=== PATIENT | female | born 1975 | race Caucasian/White ===

== ENCOUNTER 2024-02-15 16:24 | Inpatient (IN) | payer MEDICAID ==
[~2024-02-15] VITALS: Ht 160 cm; Wt 63.1 kg
[~2024-02-15 16:24] MED LIST: IBUP-1986 PO
[2024-02-15] MEDS: normal saline 1000ML IV soln IVB ONE (16:35)
[2024-02-15 17:19] LABS: HEMOGLOBIN 12.4 g/dl (12.0-16.0)
[2024-02-15 17:20] LABS: BASOPHILS % (AUTO) 0.3 % (0-1); EOSINOPHILS % (AUTO) 0 % (0-6); HEMATOCRIT 37.7 % (35.0-45.0); LYMPHOCYTES % (AUTO) 55.3 % (21-51); MEAN CORPUSCULAR HEMOGLOBIN 29.1 PG (27.0-31.0); MEAN CORPUSCULAR HGB CONC 32.9 g/dL (33.0-36.5); MEAN CORPUSCULAR VOLUME 88.3 FL (78-98); MEAN PLATELET VOLUME 7.4 FL (7.4-10.4); MONOCYTES % (AUTO) 11.2 % (2-12); NEUTROPHILS % (AUTO) 33.2 % (42-75); PLATELET COUNT 262 X10'3 (140-440); RED BLOOD COUNT 4.27 X10'6 (4.20-5.60); RED CELL DISTRIBUTION WIDTH 15.1 % (11.5-14.5); WHITE BLOOD COUNT 9.1 X10'3 (4.5-11.0)
[2024-02-15 17:28] LABS: ALBUMIN 3.6 G/DL (3.4-5.0); ANION GAP 11 (8-16); BLOOD UREA NITROGEN 19 MG/DL (7-18); BUN/CREATININE RATIO 20.2 (10.0-20.0); CALCIUM 9.8 MG/DL (8.5-10.1); CHLORIDE 105 MMOL/L (99-107); CREATININE 0.94 MG/DL (0.40-0.90); ETHANOL < 10 MG/DL (<10); GLUCOSE 84 MG/DL (70-104); POTASSIUM 3.5 MMOL/L (3.5-5.1); SODIUM 144 MMOL/L (135-145); eGFR 65 ML/MIN
[2024-02-15 18:59] LABS: BILIRUBIN,URINE NEGATIVE (Neg); CLARITY,URINE SLIGHTLY CLOUDY (Clear); COLOR,URINE YELLOW (Yellow); GLUCOSE, URINE NEGATIVE (Neg); KETONES,URINE NEGATIVE (Neg); LEUKOCYTE ESTERASE ,URINE TRACE (Neg); NITRITES, URINE POSITIVE (Neg); OCCULT BLOOD,URINE NEGATIVE (Neg); PH,URINE 6.5 (4.8-8.0); PROTEIN,URINE TRACE mg/dl (Neg); UROBILINOGEN,URINE 0.2 E.U/dL (0.2-1.0)
[2024-02-15 19:10] LABS: UA COLLECTION TYPE STRAIGHT CATH
[2024-02-15 19:11] LABS: URINE AMPHETAMINE SCREEN POSITIVE (Neg); URINE BARBITUATE SCREEN NEGATIVE (Neg); URINE BENZODIAZEPINES SCREEN NEGATIVE (Neg); URINE CANNABINOID SCREEN POSITIVE (Neg); URINE COCAINE SCREEN NEGATIVE (Neg); URINE METHADONE SCREEN NEGATIVE (Neg); URINE OPIATE SCREEN NEGATIVE (Neg); URINE PHENCYCLIDINE SCREEN NEGATIVE (Neg)
[2024-02-15 19:12] LABS: SQUAMOUS EPITHELIAL CELL,UR FEW /LPF (FEW)
[2024-02-15 19:13] LABS: BACTERIA,URINE 4+ /HPF (Neg); RBC,URINE NONE SEEN /HPF (0-2); WBC,URINE 30-50 /HPF (0-4)
[2024-02-15] MEDS: CefTRIAXone 250MG inj IM ONE (20:00)
[2024-02-15 20:10] LABS: SALICYLATE 1.6 MG/DL (4.0-20.0)
[2024-02-15 20:11] LABS: ACETAMINOPHEN < 2.0 UG/ML (10-30)
[2024-02-15] MEDS: CefTRIAXone 500MG IM Kit w/LIDOcaine IM ONE (20:26)
[2024-02-15] MEDS ORDERED: magnesium 4gm in 100ml NS 100 ML IV PRN (22:45)
[2024-02-15] MEDS ORDERED: ondansetron/PF 4mg/2ml inj IV PRN (22:45)
[2024-02-15] MEDS ORDERED: magnesium Cl slow-release 64mg tablet PO PRN (22:45)
[2024-02-15] MEDS ORDERED: acetaminophen 325mg tablet PO PRN (22:45)
[2024-02-15] MEDS ORDERED: magnesium 2GM in 50ml NS 50 ML IV PRN (22:45)
[2024-02-15] MEDS ORDERED: potassium Cl 40MEQ/1/2NS 520ml 520 ML IV PRN (22:45)
[2024-02-15] MEDS ORDERED: magnesium hydroxide 30ml (MOM) UD suspension PO PRN (22:45)
[2024-02-15] MEDS ORDERED: potassium Cl 20 mEq SR tablet PO PRN ×2 (22:45)
[2024-02-15] MEDS ORDERED: mag hydrox/Alum hydrox/simeth 30ml oral suspension PO PRN (22:45)
[2024-02-15] MEDS: dextrose 5%-1/2 normal saline 1,000 ML IV SCH (23:33)
[2024-02-16] VITALS (10 sets, daily range): BP systolic 95–113; BP diastolic 47–67; PULSE 74–89; RESP 12–26; TEMP 96.9–98.6; O2SAT 94–98
[2024-02-16 06:58] LABS: BASOPHILS % (AUTO) 0.2 % (0-1); EOSINOPHILS % (AUTO) 0.1 % (0-6); HEMATOCRIT 33.2 % (35.0-45.0); LYMPHOCYTES # (AUTO) 2.2 X10'3 (1.1-4.8); LYMPHOCYTES % (AUTO) 41.7 % (21-51); MEAN CORPUSCULAR HEMOGLOBIN 29.1 PG (27.0-31.0); MEAN CORPUSCULAR HGB CONC 33.1 g/dL (33.0-36.5); MEAN CORPUSCULAR VOLUME 87.9 FL (78-98); MEAN PLATELET VOLUME 7.5 FL (7.4-10.4); MONOCYTES # (AUTO) 0.4 X10'3 (0-0.9); NEUTROPHILS # (AUTO) 2.7 X10'3 (1.8-7.7); PLATELET COUNT 205 X10'3 (140-440); RED BLOOD COUNT 3.78 X10'6 (4.20-5.60); RED CELL DISTRIBUTION WIDTH 15.1 % (11.5-14.5); WHITE BLOOD COUNT 5.3 X10'3 (4.5-11.0)
[2024-02-16 07:41] LABS: ALANINE AMINOTRANSFERASE 162 U/L (12-78); ALBUMIN 2.8 G/DL (3.4-5.0); ALBUMIN/GLOBULIN RATIO 0.7 (1.1-1.5); ALKALINE PHOSPHATASE 89 IU/L (46-116); ANION GAP 7 (8-16); ASPARTATE AMINO TRANSFERASE 161 U/L (10-37); BILIRUBIN,TOTAL 0.5 MG/DL (0.1-1.0); BLOOD UREA NITROGEN 15 MG/DL (7-18); BUN/CREATININE RATIO 22.4 (10.0-20.0); CALCIUM 8.5 MG/DL (8.5-10.1); CHLORIDE 110 MMOL/L (99-107); CREATININE 0.67 MG/DL (0.40-0.90); GLUCOSE 84 MG/DL (70-104); MAGNESIUM 2.1 MG/DL (1.5-2.4); POTASSIUM 3.6 MMOL/L (3.5-5.1); SODIUM 144 MMOL/L (135-145); TOTAL CARBON DIOXIDE 26.9 MMOL/L (24-32); TOTAL PROTEIN 7.1 G/DL (6.4-8.2); eGFR > 90 ML/MIN
[2024-02-16] MEDS: K and/or MAG REPLACEMENT MC SCH (08:33)
[2024-02-16] MEDS: docusate sod 100mg capsule PO SCH (08:51)
[2024-02-16] MEDS: heparin, porcine 5000 units/ml vial SQ SCH (08:51)
[2024-02-16] MEDS: ketorolac trometh. 30mg/ml inj. IV ONE (14:02)
[2024-02-16] MEDS: CefTRIAXone/D5W-Rocephin 1gm 50 ML IV SCH (14:02)
[2024-02-17] MEDS: ibuprofen tablet 400 MG TABLET PO PRN (01:20)
[2024-02-17 01:23] VITALS: BP 102/55; PULSE 85; RESP 18; TEMP 97.7; O2SAT 97
[2024-02-17] MEDS ORDERED: NO HOME MEDS (02:24)
[2024-02-17 06:33] LABS: BASOPHILS % (AUTO) 0.7 % (0-1); EOSINOPHILS % (AUTO) 0.1 % (0-6); HEMATOCRIT 34.6 % (35.0-45.0); HEMOGLOBIN 11.5 g/dl (12.0-16.0); LYMPHOCYTES # (AUTO) 2.2 X10'3 (1.1-4.8); LYMPHOCYTES % (AUTO) 47.8 % (21-51); MEAN CORPUSCULAR HEMOGLOBIN 29.5 PG (27.0-31.0); MEAN CORPUSCULAR HGB CONC 33.3 g/dL (33.0-36.5); MEAN CORPUSCULAR VOLUME 88.7 FL (78-98); MEAN PLATELET VOLUME 7.3 FL (7.4-10.4); MONOCYTES # (AUTO) 0.3 X10'3 (0-0.9); MONOCYTES % (AUTO) 7.1 % (2-12); NEUTROPHILS % (AUTO) 44.3 % (42-75); PLATELET COUNT 188 X10'3 (140-440); RED CELL DISTRIBUTION WIDTH 15.2 % (11.5-14.5); WHITE BLOOD COUNT 4.6 X10'3 (4.5-11.0)
[2024-02-17 06:59] LABS: ALANINE AMINOTRANSFERASE 157 U/L (12-78); ALBUMIN 2.7 G/DL (3.4-5.0); ALBUMIN/GLOBULIN RATIO 0.6 (1.1-1.5); ALKALINE PHOSPHATASE 83 IU/L (46-116); ANION GAP 8 (8-16); ASPARTATE AMINO TRANSFERASE 155 U/L (10-37); BILIRUBIN,TOTAL 0.3 MG/DL (0.1-1.0); BLOOD UREA NITROGEN 18 MG/DL (7-18); BUN/CREATININE RATIO 23.4 (10.0-20.0); CALCIUM 8.5 MG/DL (8.5-10.1); CHLORIDE 109 MMOL/L (99-107); CREATININE 0.77 MG/DL (0.40-0.90); GLUCOSE 92 MG/DL (70-104); MAGNESIUM 1.9 MG/DL (1.5-2.4); POTASSIUM 4.1 MMOL/L (3.5-5.1); SODIUM 142 MMOL/L (135-145); TOTAL CARBON DIOXIDE 25.3 MMOL/L (24-32); TOTAL PROTEIN 7.3 G/DL (6.4-8.2); eCRCL 76 ML/MIN; eGFR 81 ML/MIN
[2024-02-17 07:00] VITALS: BP 120/77; PULSE 96; RESP 18; TEMP 99; O2SAT 98
[2024-02-17 08:00] VITALS: RESP 18; O2SAT 98
[2024-02-17] MEDS ORDERED: diphenhydrAMINE 25mg capsule PO PRN (10:40)
[2024-02-17] MEDS ORDERED: cyclobenzaprine 10mg tablet PO PRN (10:40)
[2024-02-17] MEDS ORDERED: acetaminophen 325mg tablet PO PRN (10:40)
[2024-02-17] MEDS ORDERED: ondansetron 4mg rapidly disintigrating tab PO PRN (10:40)
[2024-02-17] MEDS ORDERED: loperamide 2mg capsule PO ONE (10:40)
[2024-02-17] MEDS ORDERED: ondansetron/PF 4mg/2ml inj IV PRN (10:40)
[2024-02-17] MEDS ORDERED: IBUP-2417 PO (10:41)
[2024-02-17 11:00] VITALS: BP 114/61; PULSE 74; RESP 18; TEMP 97.8; O2SAT 94
[2024-02-17] MEDS: LORazepam 1 MG tablet PO PRN (11:07)
[2024-02-17] MEDS ORDERED: cloNIDine 0.1 mg tablet PO SCH (12:00)
[2024-02-17 15:00] VITALS: BP 121/65; PULSE 83; RESP 18; TEMP 97.8; O2SAT 92
[2024-02-17] MEDS ORDERED: CEFD300C3 PO (16:42)
[2024-02-17] MEDS ORDERED: traZODone 50mg tablet PO SCH (21:00)
== END 2024-02-17 18:35 | disposition home or self-care (01) | DRG 812 ==
LOC: ER 16:26 → EDBD 22:48 → ED HOLD 22:48 → PCU 3S 02-16 00:26
PROVIDERS: ADMIT Internal Medicine; ATTEND Family Medicine
DX: T40.411A Poisoning by fentanyl or fentanyl analogs, accidental (unintentional), initial encounter (principal); F15.10 Other stimulant abuse, uncomplicated; B96.20 Unspecified Escherichia coli [E. coli] as the cause of diseases classified elsewhere; N39.0 Urinary tract infection, site not specified; Z59.00 Homelessness unspecified; Y92.89 Other specified places as the place of occurrence of the external cause
CPT/HCPCS: 36415; 71045; 80048; 80053; 80305; 80320; 80329; 81001; 82140; 83735; 85025; 87077; 87081; 87088; 87186; 93005; 99285; A4353; C1758; G0378; J0696; J1644; J1885; J7030